=== PATIENT | male | born 1990 | race Caucasian/White ===

== ENCOUNTER 2018-03-03 14:38 | Emergency (ER) | payer OTHER ==
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
[2018-03-03 16:20] VITALS: BP 112/74
== END 2018-03-03 16:20 | disposition home or self-care (01) ==
DX: S80.11XA Contusion of right lower leg, initial encounter (principal); S63.502A Unspecified sprain of left wrist, initial encounter; V18.0XXA Pedal cycle driver injured in noncollision transport accident in nontraffic accident, initial encounter; Y93.55 Activity, bike riding